=== PATIENT | male | born 1935 | race Caucasian/White ===

== ENCOUNTER 2022-11-15 10:18 | Emergency (ER) | payer MEDICARE ==
[~2022-11-15] VITALS: Ht 177.8 cm; Wt 68.0 kg
[~2022-11-15 10:18] MED LIST: ASPIRIN LOW DOS81 MG PO; BABY ASPIRIN81 MG OR; LOSARTAN POT50 MG PO; MULTIVITAMIN PO; SIMVASTATIN40 MG PO; ULTRAM50 MG OR; ZOCOR20 MG OR
[2022-11-15] MEDS ORDERED: ELIQUIS5 MG PO (11:47)
[2022-11-15] MEDS ORDERED: LIPITOR20 M1 PO (11:47)
[2022-11-15] MEDS ORDERED: METOPROL TAR25 MG PO (11:48)
[2022-11-15] MEDS ORDERED: MONTELUKAST SOD10 MG PO (11:48)
[2022-11-15] MEDS ORDERED: FUROSEMIDE20 MG PO (11:49)
[2022-11-15] MEDS ORDERED: ASPIRIN81 MG PO (11:50)
[2022-11-15] MEDS ORDERED: DILTIAZEM60 MG PO (11:50)
[2022-11-15] MEDS ORDERED: METOLAZONE2.5 MG PO (11:51)
[2022-11-15] MEDS ORDERED: CORDARONE/200 MG/TAB PO (11:52)
[2022-11-15] MEDS ORDERED: ALTACE1.25 MG PO (11:54)
[2022-11-15] MEDS ORDERED: METHOCARBAMOL500 MG PO (13:56)
[2022-11-15] MEDS ORDERED: PREDNISONE10 MG PO (13:56)
[2022-11-15 14:30] VITALS: BP 119/61
== END 2022-11-15 14:30 | disposition home or self-care (01) ==
LOC: ED 10:18
DX: M47.816 Spondylosis without myelopathy or radiculopathy, lumbar region (principal); M41.9 Scoliosis, unspecified; Z95.5 Presence of coronary angioplasty implant and graft

== ENCOUNTER 2022-11-25 10:52 | Emergency (ER) | payer MEDICARE ==
[~2022-11-25] VITALS: Ht 177.8 cm; Wt 68.2 kg
[~2022-11-25 10:52] MED LIST changes: +ALTACE1.25 MG PO; +ASPIRIN81 MG PO; +CORDARONE/200 MG/TAB PO; +DILTIAZEM60 MG PO; +ELIQUIS5 MG PO; +FUROSEMIDE20 MG PO; +LIPITOR20 M1 PO; +METHOCARBAMOL500 MG PO; +METOLAZONE2.5 MG PO; +METOPROL TAR25 MG PO; +MONTELUKAST SOD10 MG PO; +PREDNISONE10 MG PO
[2022-11-25 11:06] VITALS: BP 130/80
[2022-11-25 11:16] VITALS: BP 135/64
[2022-11-25] MEDS ORDERED: PAXLOVID PO (11:16)
[2022-11-25 11:31] VITALS: BP 112/74
== END 2022-11-25 11:46 | disposition home or self-care (01) ==
LOC: ED 10:52
DX: U07.1 COVID-19 (principal); R52 Pain, unspecified; R05.9 Cough, unspecified; R50.9 Fever, unspecified; R09.89 Other specified symptoms and signs involving the circulatory and respiratory systems; Z95.5 Presence of coronary angioplasty implant and graft

== ENCOUNTER 2025-01-27 09:35 | Emergency (ER) | payer MEDICARE ==
[2025-01-27] VITALS (14 sets, daily range): BP systolic 121–177; BP diastolic 62–90
[~2025-01-27] VITALS: Ht 177.8 cm; Wt 62.0 kg
[~2025-01-27 09:35] MED LIST changes: +PAXLOVID PO; +TRAMADOL HCL50 MG PO
[2025-01-27] MEDS ORDERED: IPRATROPIUM-Albuterol 0.5MG-2.5MG/3 ML NEB ONE ×2 (10:35)
[2025-01-27] MEDS ORDERED: methylPREDNISolone SODIUM SUCC 125 MG/2 ML SDV IV ONE (10:35)
[2025-01-27 10:39] LABS: BASO% 0.4 % (0-3); EOS% 1.3 % (0-8); HEMATOCRIT 39.5 % (39.0-50.0); HEMOGLOBIN 12.3 g/dl (14.0-18.0); IMMATURE GRANULOCYTES 0.4 % (0.0-5.0); LYMPH% 10.5 % (15-41); MEAN CORPUSCULAR HGB 29.6 pG CALC (26.0-32.0); MEAN CORPUSCULAR HGB CONC 31.1 g/dL CAL (32.0-36.0); MONO% 10.4 % (2-13); NEUT# 5.78 thou/uL (1.82-7.42); RED BLOOD COUNT 4.16 mill/uL (4.70-6.10); RED CELL DISTRI WIDTH 14.5 % (11.5-15.5)
[2025-01-27 10:45] LABS: ALBUMIN 4.1 g/dL (3.2-5.0); ALKALINE PHOSPHATASE 146 u/l (38-126); ANION GAP 13 (6-22 (CALC)); BILIRUBIN, TOTAL 0.7 mg/dL (0.2-1.3); BUN 20 mg/dL (8-23); BUN/CREATININE RATIO 19 (12-20 (CALC)); CARBON DIOXIDE 27 mmol/l (22-30); CHLORIDE 99 mmol/l (95-108); CREATININE 1.1 mg/dL (0.7-1.3); ESTIMATED GFR 65 ML/MIN (>=90 (CALC)); POTASSIUM 4.7 mmol/l (3.5-5.1); SGOT/AST 104 u/l (19-48); SODIUM 134 mmol/l (137-146); TOTAL PROTEIN 7.9 g/dL (6.3-8.2)
[2025-01-27] MEDS ORDERED: VENTOLIN HFA108 MCG PO (12:20)
[2025-01-27] MEDS ORDERED: AMOX/K CLAV875 M1 PO (12:20)
[2025-01-27] MEDS ORDERED: PREDNISONE50 MG PO (12:20)
[2025-01-27] MEDS ORDERED: LASIX20 MG PO (12:20)
[2025-01-27] MEDS ORDERED: ZPAK PO (12:20)
== END 2025-01-27 12:34 | disposition home or self-care (01) ==
LOC: ED 09:35
PROVIDERS: Family Medicine
DX: J18.9 Pneumonia, unspecified organism (principal); I11.0 Hypertensive heart disease with heart failure; I50.9 Heart failure, unspecified; I48.91 Unspecified atrial fibrillation; Z20.822 Contact with and (suspected) exposure to COVID-19